=== PATIENT | female | born 1980 | race Two or more races ===

== ENCOUNTER 2020-05-14 23:46 | Emergency (ER) | payer SELFPAY ==
[~2020-05-14] VITALS: Ht 154.9 cm; Wt 73.0 kg
[2020-05-15 00:06] VITALS: BP 134/88
== END 2020-05-15 00:26 | disposition home or self-care (01) ==
LOC: EMS 23:46
DX: S61.211A Laceration without foreign body of left index finger without damage to nail, initial encounter (principal); F17.210 Nicotine dependence, cigarettes, uncomplicated; W25.XXXA Contact with sharp glass, initial encounter; Y93.89 Activity, other specified; Y92.89 Other specified places as the place of occurrence of the external cause; Y99.8 Other external cause status
CPT/HCPCS: 12001; Z7502

== ENCOUNTER 2020-06-12 04:16 | Emergency (ER) | payer SELFPAY ==
[~2020-06-12] VITALS: Ht 152.4 cm; Wt 71.0 kg
[2020-06-12] MEDS ORDERED: LIDOCAINE 2% VISCOUS 15 ML SOLUTION UDCUP MM ONE (04:45)
[2020-06-12] MEDS ORDERED: MORPHINE SULFATE 15 MG IR TABLET PO ONE (05:15)
[2020-06-12 05:52] VITALS: BP 135/76
== END 2020-06-12 05:53 | disposition home or self-care (01) ==
LOC: EMS 04:17
DX: H72.92 Unspecified perforation of tympanic membrane, left ear (principal); F17.210 Nicotine dependence, cigarettes, uncomplicated

== ENCOUNTER 2020-06-15 04:46 | Emergency (ER) | payer SELFPAY ==
[~2020-06-15] VITALS: Ht 152.4 cm; Wt 68.2 kg
[2020-06-15 04:47] VITALS: BP 134/93
== END 2020-06-15 06:17 | disposition left against medical advice (07) ==
LOC: EMS 04:47
DX: R10.9 Unspecified abdominal pain (principal); Z53.21 Procedure and treatment not carried out due to patient leaving prior to being seen by health care provider

== ENCOUNTER 2020-06-17 14:00 | Emergency (ER) | payer MEDICAID ==
[~2020-06-17] VITALS: Ht 154.9 cm; Wt 68.2 kg
[2020-06-17 15:52] VITALS: BP 125/82
[2020-06-17] MEDS ORDERED: CefTRIAXone SODIUM 1 GM/VIAL IM ONE (16:45)
[2020-06-17] MEDS ORDERED: LEVOFLOXACIN 500 MG TABLET PO ONE (16:45)
[2020-06-17] MEDS ORDERED: HYDROCODONE/ACETAMINOPHEN 5-325 MG TABLET PO ONE (16:45)
[2020-06-17] MEDS ORDERED: LIDOCAINE/PF 1% 2 ML VIAL IM ONE (16:45)
[2020-06-17] MEDS: ONDANSETRON HCL 4 MG/2 ML VIAL IM ONE ×2 (17:03→17:12)
[2020-06-17 17:19] LABS: BASOPHILS % (AUTO) 0.6 % (0.0-2.0); EOSINOPHILS % (AUTO) 0.6 % (1.0-6.0); HEMATOCRIT 42.8 % (36-46); HEMOGLOBIN 14.3 g/dL (12.0-16.0); LYMPHOCYTES # (AUTO) 1.1 K/uL (1.0-4.8); LYMPHOCYTES % (AUTO) 16.3 % (22.0-44.0); MEAN CORPUSCULAR HGB CONC 33.4 G/dL (31.0-37.0); MEAN CORPUSCULAR VOLUME 90 fL (80-100); MONOCYTES # (AUTO) 0.6 K/uL (0.1-1.0); MONOCYTES % (AUTO) 9.3 % (2.0-9.0); NEUTROPHILS # (AUTO) 4.9 K/uL (1.8-7.7); NEUTROPHILS % (AUTO) 73.2 % (40.0-70.0); PLATELET COUNT (AUTO) 252 K/uL (150-450); RED BLOOD CELL COUNT(AUTO) 4.76 MIL/uL (4.00-5.20); RED CELL DISTRIBUTION WIDTH 14.4 % (11.5-14.5)
[2020-06-17 17:21] LABS: APPEARANCE,URINE CLOUDY (CLEAR); BILIRUBIN,URINE NEGATIVE (NEGATIVE); GLUCOSE, URINE (UA) NEGATIVE (NEGATIVE); KETONES,URINE NEGATIVE (NEGATIVE); LEUKOCYTE ESTERASE ,URINE MODERATE (NEGATIVE); NITRATE,URINE POSITIVE (NEGATIVE); OCCULT BLOOD,URINE LARGE (NEGATIVE); PROTEIN,URINE POS 1+ (NEGATIVE); UROBILINOGEN,URINE 0.2 mg/dL (<=1.0)
[2020-06-17 17:32] LABS: ANION GAP 4 mmol/L (8-16); CALCIUM, TOTAL 8.5 mg/dL (8.8-10.5); CARBON DIOXIDE 29 mmol/L (22-29); CHLORIDE 104 mmol/L (98-107); CREATININE 0.88 mg/dL (0.60-1.30); GLOMERULAR FILTR. RATE CALC > 60 mL/min (>60); GLUCOSE,RANDOM 102 mg/dL (70-110); POTASSIUM 3.4 mmol/L (3.5-5.1); SODIUM SERUM 137 mmol/L (136-145); UREA NITROGEN, BLOOD 9 mg/dL (7-18)
[2020-06-17] MEDS ORDERED: POTASSIUM CHLORIDE 10% 40 MEQ/30 ML LIQUID UDCUP PO ONE (17:45)
[2020-06-17 17:57] LABS: ALANINE AMINOTRANSFERASE 62 U/L (12-78); ALBUMIN 2.6 g/dL (3.4-5.0); ALKALINE PHOSPHATASE 125 U/L (46-116); ASPARTATE AMINOTRANSFERASE 36 U/L (15-37); BILIRUBIN,TOTAL 0.3 mg/dL (0.1-1.0); HCG,QUANTITATIVE < 1 mIU/mL (0-6); LIPASE 57 U/L (73-393); TOTAL PROTEIN, SERUM 6.8 g/dL (6.4-8.2)
[2020-06-17 18:31] LABS: BACTERIA,URINE Many /HPF (None Seen); RBC,URINE 51-100 /HPF (0-2); WBC,URINE 26-50 /HPF (0-5)
[2020-06-17 18:40] LABS: SQUAMOUS EPITHELIAL CELL,UR Many /LPF (None Seen)
== END 2020-06-17 17:55 | disposition home or self-care (01) ==
LOC: EMS 14:00
DX: N12 Tubulo-interstitial nephritis, not specified as acute or chronic (principal); E87.6 Hypokalemia; F11.10 Opioid abuse, uncomplicated; F17.210 Nicotine dependence, cigarettes, uncomplicated
CPT/HCPCS: 36415; 80053; 81001; 83690; 84702; 85025; 96372; 99283; 99406; J0696; J2405; J3490

== ENCOUNTER 2021-01-28 20:37 | Emergency (ER) | payer MEDICAID, OTHER ==
[~2021-01-28] VITALS: Ht 152.4 cm; Wt 72.7 kg
[2021-01-28 20:45] VITALS: BP 165/99
[2021-01-28 21:15] LABS: APPEARANCE,URINE RPT (CLEAR); BILIRUBIN,URINE NEGATIVE (NEGATIVE); GLUCOSE, URINE (UA) NEGATIVE (NEGATIVE); KETONES,URINE NEGATIVE (NEGATIVE); LEUKOCYTE ESTERASE ,URINE LARGE (NEGATIVE); NITRATE,URINE POSITIVE (NEGATIVE); OCCULT BLOOD,URINE LARGE (NEGATIVE); PH,URINE 6.5 (5.0-8.0); PROTEIN,URINE SEE CONFIRM (NEGATIVE); UROBILINOGEN,URINE 0.2 mg/dL (<=1.0)
[2021-01-28 21:38] LABS: SULFOSALICYLIC ACID,URINE 3+ (Negative)
[2021-01-28 21:39] LABS: RBC,URINE >100 /HPF (0-2)
[2021-01-28 21:40] LABS: WBC,URINE 26-50 /HPF (0-5)
[2021-01-28 21:44] LABS: BACTERIA,URINE Moderate /HPF (None Seen); SQUAMOUS EPITHELIAL CELL,UR Moderate /LPF (None Seen)
== END 2021-01-28 22:00 | disposition left against medical advice (07) ==
LOC: EMS 20:38
DX: R30.9 Painful micturition, unspecified (principal); Z53.21 Procedure and treatment not carried out due to patient leaving prior to being seen by health care provider
CPT/HCPCS: 81001; 81002; 87077; 87086; 87186

== ENCOUNTER 2021-02-02 03:19 | Emergency (ER) | payer OTHER ==
[~2021-02-02] VITALS: Ht 165.1 cm; Wt 77.3 kg
[2021-02-02 04:15] VITALS: BP 140/87
[2021-02-02] MEDS ORDERED: LIDOCAINE/PF 1% 2 ML VIAL IM ONE (04:30)
[2021-02-02] MEDS ORDERED: AZITHROMYCIN 500 MG TABLET PO ONE (04:30)
[2021-02-02] MEDS ORDERED: CefTRIAXone SODIUM 1 GM/VIAL IM ONE (04:30)
== END 2021-02-02 04:46 | disposition home or self-care (01) ==
LOC: EMS 03:20
DX: N39.0 Urinary tract infection, site not specified (principal); F11.10 Opioid abuse, uncomplicated; Z20.2 Contact with and (suspected) exposure to infections with a predominantly sexual mode of transmission; F17.210 Nicotine dependence, cigarettes, uncomplicated
CPT/HCPCS: 87491; 87591; 96372; 99283; A9575; J0696; J3490

== ENCOUNTER 2021-03-21 13:24 | Emergency (ER) | payer OTHER ==
[~2021-03-21] VITALS: Ht 152.4 cm; Wt 68.2 kg
[2021-03-21] MEDS ORDERED: METH10 PO (13:40)
[2021-03-21 14:01] LABS: BASOPHILS % (AUTO) 1.1 % (0.0-2.0); EOSINOPHILS % (AUTO) 0.4 % (1.0-6.0); HEMATOCRIT 37.7 % (36-46); HEMOGLOBIN 12.1 g/dL (12.0-16.0); LYMPHOCYTES # (AUTO) 1.6 K/uL (1.0-4.8); LYMPHOCYTES % (AUTO) 19.8 % (22.0-44.0); MEAN CORPUSCULAR HEMOGLOBIN 26.6 pg (26.0-34.0); MEAN CORPUSCULAR HGB CONC 32.1 G/dL (31.0-37.0); MEAN CORPUSCULAR VOLUME 83 fL (80-100); MONOCYTES # (AUTO) 0.5 K/uL (0.1-1.0); MONOCYTES % (AUTO) 6.3 % (2.0-9.0); NEUTROPHILS % (AUTO) 72.4 % (40.0-70.0); PLATELET COUNT (AUTO) 359 K/uL (150-450); RED BLOOD CELL COUNT(AUTO) 4.55 MIL/uL (4.00-5.20); RED CELL DISTRIBUTION WIDTH 16.7 % (11.5-14.5)
[2021-03-21 14:06] LABS: ANION GAP 8 mmol/L (8-16); CARBON DIOXIDE 28 mmol/L (22-29); CHLORIDE 105 mmol/L (98-107); CREATININE 1.14 mg/dL (0.60-1.30); GLOMERULAR FILTR. RATE CALC 53 mL/min (>60); GLUCOSE,RANDOM 81 mg/dL (70-110); POTASSIUM 4.3 mmol/L (3.5-5.1); SODIUM SERUM 141 mmol/L (136-145); UREA NITROGEN, BLOOD 15 mg/dL (7-18)
[2021-03-21 14:17] LABS: ALANINE AMINOTRANSFERASE 26 U/L (12-78); ALBUMIN 3.4 g/dL (3.4-5.0); ALKALINE PHOSPHATASE 113 U/L (46-116); ASPARTATE AMINOTRANSFERASE 19 U/L (15-37); BILIRUBIN,TOTAL 0.5 mg/dL (0.1-1.0); HCG,QUANTITATIVE < 1 mIU/mL (0-6); TOTAL PROTEIN, SERUM 7.7 g/dL (6.4-8.2)
[2021-03-21 15:18] LABS: APPEARANCE,URINE CLOUDY (CLEAR); BILIRUBIN,URINE NEGATIVE (NEGATIVE); GLUCOSE, URINE (UA) NEGATIVE (NEGATIVE); KETONES,URINE 15 mg/dL (NEGATIVE); LEUKOCYTE ESTERASE ,URINE LARGE (NEGATIVE); OCCULT BLOOD,URINE LARGE (NEGATIVE); PROTEIN,URINE SEE CONFIRM (NEGATIVE)
[2021-03-21 15:43] LABS: BACTERIA,URINE Moderate /HPF (None Seen); RBC,URINE 26-50 /HPF (0-2); SQUAMOUS EPITHELIAL CELL,UR Rare /LPF (None Seen)
[2021-03-21 15:44] LABS: NITRATE,URINE POSITIVE (NEGATIVE); SULFOSALICYLIC ACID,URINE 2+ (Negative)
[2021-03-21 16:00] VITALS: BP 132/82
== END 2021-03-21 15:57 | disposition home or self-care (01) ==
LOC: EMS 13:24
DX: N39.0 Urinary tract infection, site not specified (principal); F17.210 Nicotine dependence, cigarettes, uncomplicated; F11.90 Opioid use, unspecified, uncomplicated; Z59.0 Homelessness
CPT/HCPCS: 80053; 81001; 81002; 84702; 85025; 87086; 99283